=== PATIENT | female | born 1970 | race Two or more races ===

== ENCOUNTER 2024-06-26 09:55 | Emergency (ER) | payer OTHER, SELFPAY ==
[2024-06-26 10:05] VITALS: BP 160/98; PULSE 117; RESP 16; TEMP 36.9; O2SAT 95; BMI 41.0
--- NOTE | 2024-06-26 10:20 | ED_ITS ---
HPI - Skin/Abscess/Foreign Bdy General Chief complaint: Skin/Abscess/Foreign Body Stated complaint: Lumps on back Time Seen by Provider: 06/26/24 10:04 Source: patient, family, old records reviewed and translator interpreter Mode of arrival: ambulatory Limitations: no limitations History of Present Illness ED Provider: FORREST HPI narrative: 54 yo female with PMH of RA on injections though she is not sure of the name - denies any oral immunosuppressants reports R upper lateral neck lesion that is painful and red. No discharge, she denies diabetes. She reports subjective fevers. Upper neck lesion has been present x 3 days. She has a chronic mass in the skin in lower back for years it is not inflammed. MD complaint: abscess/boil Onset (ago): day(s) (3) Tetanus up to date: yes Location: back Severity: moderate Quality: aching Pain Consistency: constant Relieving factors: none Exacerbating factors: palpation Context: none Associated symptoms: fever (subjective no temp takes) Related Data Previous Rx's ?Medication ?Instructions ?Recorded cephalexin 500 mg capsule 500 mg PO QID 7 days #28 caps 06/26/24 doxycycline hyclate 100 mg capsule 100 mg PO BID 7 days #14 caps 06/26/24 hydrocodone 5 mg-acetaminophen 325 1 tab PO Q6H PRN pain #10 tabs 06/26/24 mg tablet Allergies Allergy/AdvReac Type Severity Reaction Status Date / Time No Known Allergies Allergy Verified 06/26/24 10:06 Review of Systems Review of Systems: Constitutional : pos Fever, No Chills ENT/Mouth : No sore throat, No Rhinorrhea Eyes: No Eye Pain, No Swelling, No Redness Cardiovascular : No Chest Pain, No SOB Respiratory : No Cough, No Sputum Gastrointestinal : No Nausea, No Vomiting, No Diarrhea, No abdominal Pain Genitourinary : No Dysuria, No Hematuria Musculoskeletal : No joint pain, No Myalgias, No Joint Swelling Skin : pos Skin Lesions, positive skin rash Neuro : No Weakness, No Numbness, No Headache Psych : No Anxiety, No Depression All other systems reviewed and are negative [facility] Past Medical History Attestation statement: The following information was validated with the patient. Source: old records reviewed Medical History (Updated 06/26/24 @ 11:18 by Emily Rivas DO) Rheumatoid arthritis Social History Social History (Updated 06/26/24 @ 10:24 by Emily Rivas DO) Patient Tobacco Use Status: Never used Tobacco Advance Directives: No Advance Directives Information Provided: No Physical Exam Vital Signs: Vital Signs: Last Vital Signs Temp 98.5 F 06/26/24 10:05 Pulse 117 H 06/26/24 10:05 Resp 16 06/26/24 10:05 BP 160/98 H 06/26/24 10:05 Pulse Ox 95 06/26/24 10:05 O2 Del Method Room Air 06/26/24 10:05 BMI result Body Mass Index 41.0 Appearance: Alert. Oriented X3. No acute distress. Eyes: Pupils equal, round and reactive to light. ENT: Pharynx normal. Neck: Normal inspection. Neck supple. Back: posterior R trapezius area small 2cmred area mild fluctuance no extension of the erythema no crepitus - localized to 2cm area CVS: Normal heart rate and rhythm. Pulses normal. Respiratory: No respiratory distress. Breath sounds normal. Abdomen: Soft and nontender. Skin: Skin warm and dry. Normal skin color. Normal skin turgor. Extremities: No lower extremity edema. No calf ttp Neuro: Oriented X 3. No motor deficit. No sensory deficit. Medications Administered Discontinued Medications Generic Name Dose Route Start Last Admin Trade Name Freq PRN Reason Stop Dose Admin Lidocaine HCl 1 appl 06/26/24 10:13 06/26/24 10:25 Lidocaine 4 % Cream Kit TOPICAL 06/26/24 10:14 1 appl ONCE ONE Administration Protocol Medical Decision Making Medical Decision Making MDM Narrative: 54 yo female with PMH Of RA on injections here with c/o abscess lesion at home - at this time will I+D and start on antiboitics she reports fever at home but no fever here tachycardia likely due to pain. She is not toxic appearing the area if very small on exam can trial oral abx Differential Diagnosis Differential Diagnoses: The differential diagnosis associated with the presentation includes abscess, cellulitis Independent Historian Clinical information obtained from an independent historian. History obtained from or confirmed by: Other (family) Prescription Management I considered prescription management with: Antibiotic Procedures Abscess I/D Site: back Side (if applicable): left Local Anesthetic: lidocaine 1% and other anesthetic Amount of anesthesia used (mL): 5 Technique: needle aspiration and incised with blade Amount of fluid expressed (mL): 3 Sent for culture/gram staining?: No Irrigation: No Packing used?: none Discharge Plan Discharge Clinical Impression: Abscess of skin or subcutaneous tissue Qualifiers: Site of cutaneous abscess: trunk Site of cutaneous abscess of trunk: back Qualified Code(s): L02.212 - Cutaneous abscess of back [any part, except buttock] Patient Disposition: Home, Self-Care Instructions: Abscess (ED), Incision and Drainage (ED) Additional Instructions: monitor for increased pain and redness/fevers, vomiting can shower but no other water exposure keep clean and dry it will drain some blood and pus but should not be soaking through pads On a cephalosporin?antibiotic, softer bowel movements are to be expected. Call your provider if you move your bowels more than 4 times a day, your bowel movements are almost all liquid, or you get a rash.?? On doxycycline, do not take pills immediately before going to bed and swallow pills with plenty of water. Avoid direct sunlight, iron, antacids, and Pepto Bismol. Call your provider if you develop new ringing in your ears, new problems hearing, dizziness, difficulty swallowing, rash, abdominal discomfort, nausea, or diarrhea.? Prescriptions: New doxycycline hyclate 100 mg capsule 100 mg PO BID 7 Days Qty: 14 0RF hydrocodone-acetaminophen 5-325 mg tablet 1 tab PO Q6H PRN (Reason: pain) Qty: 10 0RF Rx Instructions: partial fill okay; Partial Fill upon patient request. cephalexin 500 mg capsule 500 mg PO QID 7 Days Qty: 28 0RF Print Language: Upper Sorbian
[2024-06-26] MEDS: Lidocaine 4 % Cream KIT 1 APPL TOPICAL (10:25)
[2024-06-26] MEDS: Lidocaine HCl 1 % MPF 5 ML VIAL SUBCUT (11:16)
[2024-06-26 11:21] VITALS: BP 121/70; PULSE 108; RESP 20; TEMP 37; O2SAT 96
[2024-06-26 11:24] VITALS: BP 121/70; PULSE 108; RESP 20; TEMP 37; O2SAT 96
[2024-06-26] MEDS: Doxycycline Monohydrate 100 MG CAPSULE PO (11:28)
[2024-06-26] MEDS: HYDROcodone Bit/Acetam 5/325 TABLET 1 TAB PO (11:31)
[2024-06-26] MEDS: cephALEXin 500 MG CAPSULE PO (11:31)
== END 2024-06-26 11:35 | disposition home or self-care (01) ==
PROVIDERS: Emergency Provider Emergency Medicine; PCP Internal Medicine
DX: L02.212 Cutaneous abscess of back [any part, except buttock and flank] (principal)
CPT/HCPCS: 10060; 99283; 99284; J2003